=== PATIENT | male | born 2005 | race Caucasian/White ===

== ENCOUNTER 2025-03-25 11:28 | Outpatient (REF) | payer OTHER, SELFPAY ==
[2025-03-25 14:38] LABS: Resp Syncy Virus RNA Qual PCR NEGATIVE (Negative); SARS COV2 PCR INHOUSE POSITIVE (Negative)
== END 2025-03-25 11:29 | disposition home or self-care (01) ==
LOC: HO.LNP 11:28
PROVIDERS: Physician Assistant Medical
DX: R09.81 Nasal congestion (principal); R09.89 Other specified symptoms and signs involving the circulatory and respiratory systems; R06.02 Shortness of breath; R51.9 Headache, unspecified; R53.83 Other fatigue; R50.9 Fever, unspecified
CPT/HCPCS: 87637

== ENCOUNTER 2025-03-25 11:28 | Outpatient (AMB) | payer OTHER, SELFPAY ==
--- NOTE | 2025-03-25 11:31 | AM.OFFWIN_ITS ---
Intake Vital Signs 03/25/25 11:35 Height 6 ft 1.75 in Weight 200 lb BMI 25.9 BP 126/60 Blood Pressure Location Lt brachial Position Sitting Pulse 94 Pulse Source Pulse Oximeter Temp 99.1 F Temp Source Oral Pulse Oximetry (%) 97 Oxygen Delivery Method Room Air Intake Visit Reasons: [employer]-fever, headaches, sinus congestion Intake Note: pt presents with sinus Allergies No Known Allergies Allergy (Verified 03/25/25 11:37) Do you need a note to return to daycare/school/sports/work: Yes HPI HPI Comments History of Present Illness Details History - The patient is a 19-year-old male pres enting with symptoms of a viral illness that began approximately two days ago with fatigue and headache, which progressively worsened. - Last night, he developed a fever, ear pain, and a dry cough. - He also reported pain with swallowing at one point. - His current symptoms include a minor h eadache, pain with eye movement, a stinging sensation with breathing, and some shortness of breath, which he notes has improved. - His temperature today was 99.1?F, and he feels much better than he did last night. - He also reports feeling very tired. - The patient denies a history of asthma . - He is eating and drinking adequately. - He recently returned to work after a f our-month absence. - No other household members are ill. Physical Exam General: Cooperative, healthy appearing, comfortable and no acute distress Orientation/consciousness: Patient oriented x3 Limitations: No limitations Head: Normal to inspection Ears: Hearing grossly normal bilaterally, external ears normal and TM's normal bilaterally. Nose: Normal external nose present, normal nares present, and no nasal discharge present. Face and sinus: Sinuses nontender to palpation. Mouth: Normal oral and palatal mucosa present and moist mucous membranes noted. Throat: Tonsils normal. Uvula is midline. Posterior oropharynx with erythema and no exudates. Eyes: Appearance normal, both eyes and all related structures Neck: Normal visual inspection, full ROM. No lymphadenopathy noted. Respiratory: Clear to auscultation bilaterally. Normal respiratory effort, able to speak in complete sentences. No respiratory distress, not tachypneic, no tripod positioning and no use of accessory muscles. Cardiovascular: Regular rate and rhythm. Normal S1 and S2. No m/r/g noted. Skin: No rashes or lesions noted Patient was informed and verbally consented to the use of an ambient scribe for clinic note documentation during this visit Review of Systems Const All systems reviewed & are unremarkable except as noted in HPI and below Physical Exam Vital Signs: Last Vital Signs Temp 99.1 F 03/25/25 11:35 Pulse 94 03/25/25 11:35 BP 126/60 03/25/25 11:35 Pulse Ox 97 03/25/25 11:35 Oxygen Delivery Method Room Air 03/25/25 11:35 BMI result Body Mass Index 25.9 Assessment & Plan Assessment & Plan (1) Nasal congestion: Code(s): R09.81 - Nasal congestion Plan Most likely URI vs allergic rhinitis vs viral illness vs covid vs flu vs RSV plan - will order resp swab in the office today - will call with the results - tylenol or motrin as needed for pain or fever - tessalon perles as needed for cough - zyrtec d daily - will give him a work note to be out for a couple of days - follow up with PCP Orders: Orders SARS-CoV2/FLU/RSV Today R09.89 - Other specified symptoms and signs involving t he circulatory and respiratory systems Medications: New benzonatate 100 mg PO bid-tid PRN 21 caps 0RF Cough 7 days cetirizine-pseudoephedrine 5-120 mg ER 1 tab PO BID 14 tabs 0RF 7 days Coding Level of Care Code Est Pt Level 3 (94831) Diagnoses Nasal congestion R09.81
[2025-03-25 11:35] VITALS: BP 126/60; PULSE 94; TEMP 37.3; O2SAT 97; BMI 25.9
== END 2025-03-25 13:24 | disposition home or self-care (01) ==
PROVIDERS: Visit Provider Physician Assistant Medical
DX: R09.81 Nasal congestion (principal)